=== PATIENT | male | born 1995 | race Caucasian/White ===

== ENCOUNTER 2024-05-25 15:09 | Emergency (ER) | payer BC, SELFPAY ==
[2024-05-25 15:20] VITALS: BP 142/76; PULSE 76; RESP 20; TEMP 36.7; O2SAT 100
--- NOTE | 2024-06-01 14:03 | ED.GENADULT ---
HPI - General Adult General Chief complaint: Unspecified Stated complaint: hemorrhoids Rupture Time Seen by Provider: 05/25/24 15:23 Source: patient, RN notes reviewed and old records reviewed Mode of arrival: ambulatory Limitations: no limitations History of Present Illness HPI narrative: 28-year-old male to [facility] for complaint of hemorrhoid pain for 1 week. Patient reports that stools have recently been harder than normal over the past 2 days. Patient reports that he strained during a bowel movement today noticed bright red blood in the toilet and while wiping. Patient denies current pain Or active bleeding. Patient resting comfortably in exam room in no acute distress. Related Data Home Medications Medication Instructions Recorded Confirmed No Home Medications 05/25/24 05/25/24 Allergies Allergy/AdvReac Type Severity Reaction Status Date / Time No Known Allergies Allergy Verified 05/25/24 16:12 Review of Systems Review of Systems: All systems reviewed & are unremarkable except as noted in HPI and below Constitutional: Constitutional: Reports no additional constitutional complaints Eyes: Eyes: Reports no additional eye complaints ENT: Reports system reviewed and no additional complaints, except as documented Cardiovascular: Cardiovascular: Reports no additional cardiovascular complaints, Denies chest pain and Denies dyspnea Respiratory: Respiratory: Reports no additional respiratory complaints, Denies cough and Denies dyspnea Gastrointestinal: Gastrointestinal: Reports as per HPI, Reports hematochezia (x1 today), Reports change in bowel habits and Reports change in stool character Musculoskeletal: Musculoskeletal: Reports no additional musculoskeletal complaints Neurologic: Reports system reviewed and no additional complaints, except as documented Psychiatric: Psychiatric: Reports no additional psychiatric complaints PMFSH Comments At the time of my signature, I reviewed and agree with the nursing past medical, surgical, social, and family history. There is no relevant family history pertinent to the patient complaint. Exam Const: General: cooperative, healthy appearing, comfortable, no acute distress, alert and well nourished Nutritional Appearance: well nourished Orientation/consciousness: patient oriented x3 Limitations: no limitations HENMT: Head: normal to inspection Ears: external ears normal Face/Nose/Sinus: Normal external nose present, Normal nares present, normal facial exam, No erythema and No edema Face and sinus: normal facial exam, no erythema and no edema Mouth: Yes Normal oral and palatal mucosa present Eyes: General: appearance normal, both eyes and all related structures Neck: Neck: normal visual inspection, full ROM and no meningeal signs Chest: Chest palpation & inspection: normal inspection of the chest Resp: Effort & Inspection: normal respiratory effort and able to speak in complete sentences Cardio: Jugular venous distension: no JVD Rate: regular rate Rhythm: regular rhythm GI: Rectal Exam: External hemorrhoid(s) present ( Scant cailin blood present perianal area) Back/Spine/Pelvis: Cervical Spine: cervical ROM normal Skin: General skin exam: normal color, no rashes or lesions noted and turgor normal Neuro: General: patient oriented x3, gait normal, moves all extremities and no meningeal signs Speech: normal speech Gait exam (Neuro): Normal gait present Extrem: General: normal to inspection, full ROM and capillary refill normal Psych: Appearance: grossly normal and well kempt Course Course Emergency Course: Some parts of this dictation were generated by voice recognition software and may contain typographical and/or grammatical inaccuracies. Level of Care: Express Care Visit Vital Signs Vital signs: Vital Signs Temperature 36.7 C 05/25/24 15:20 Pulse Rate 76 05/25/24 15:20 Respiratory Rate 20 05/25/24 15:20 Blood Pressure 142/76 H 05/25/24 15:20 Pulse Oximetry 100 05/25/24 15:20 Oxygen Delivery Room Air 05/25/24 15:20 Temperature 36.7 C 05/25/24 15:20 Pulse Rate 76 05/25/24 15:20 Respiratory Rate 20 05/25/24 15:20 Blood Pressure 142/76 H 05/25/24 15:20 Pulse Oximetry 100 05/25/24 15:20 Oxygen Delivery Room Air 05/25/24 15:20 reviewed Medical Decision Making MDM Narrative Medical decision making narrative: 28-year-old male to [facility] for complaint of hemorrhoid pain for 1 week. Patient reports that stools have recently been harder than normal over the past 2 days. Patient reports that he strained during a bowel movement today noticed bright red blood in the toilet and while wiping. Patient denies current pain Or active bleeding. Patient resting comfortably in exam room in no acute distress. on exam, external hemorrhoid present, Scant cailin blood present perianal area Patient is sitting comfortably in exam room nontoxic in appearance. Patient appropriate for outpatient treatment and follow-up. Discharge instructions reviewed with patient, as well as provided in writing per nursing staff. The instructions also include specific and strict return/GO TO THE ER as well as f/u information. All questions have been answered, and the patient deny any further questions with discharge and discharge plan. Some parts of this dictation were generated by voice recognition software and may contain typographical and/or grammatical inaccuracies. Differential Diagnosis Differential Diagnosis: GI bleed, bleeding hemorrhoids, anal fissure Vital Signs Vital Signs: Vital Signs Temperature 36.7 C 05/25/24 15:20 Pulse Rate 76 05/25/24 15:20 Respiratory Rate 20 05/25/24 15:20 Blood Pressure 142/76 H 05/25/24 15:20 Pulse Oximetry 100 05/25/24 15:20 Oxygen Delivery Room Air 05/25/24 15:20 Temperature 36.7 C 05/25/24 15:20 Pulse Rate 76 05/25/24 15:20 Respiratory Rate 20 05/25/24 15:20 Blood Pressure 142/76 H 05/25/24 15:20 Pulse Oximetry 100 05/25/24 15:20 Oxygen Delivery Room Air 05/25/24 15:20 Discharge Plan Discharge Clinical Impression: Bleeding hemorrhoids Patient Disposition: Home, Self-Care Condition: Stable Instructions: Hemorrhoids (DC) Additional Instructions: please review attached instructions regarding hemorrhoids and implement suggestions for new or worsening symptoms please go directly to the emergency department Prescriptions: No Action No Home Medications Follow-up/Referrals: Harms,Suresh Scott M.D. [Primary Care Provider] -
== END 2024-05-25 16:42 | disposition home or self-care (01) ==
PROVIDERS: Emergency Provider Nurse Practitioner Family; PCP Family Medicine
DX: K64.9 Unspecified hemorrhoids (principal)
CPT/HCPCS: 99211; G0463